=== PATIENT | female | born 1960 | race American Indian/Alaskan Native ===

== ENCOUNTER 2023-04-22 08:35 | Emergency (ER) | payer OTHER, SELFPAY ==
[2023-04-22 08:45] VITALS: BP 146/84; PULSE 77; RESP 20; TEMP 36.4; O2SAT 98; BMI 29.3
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
--- NOTE | 2023-04-22 11:03 | PC.NURSE ---
assumed care of patient 1100
== END 2023-04-22 11:13 | disposition home or self-care (01) ==
PROVIDERS: Emergency Provider Emergency Medicine Emergency Medical Services; PCP Internal Medicine
DX: S70.02XA Contusion of left hip, initial encounter (principal); S83.92XA Sprain of unspecified site of left knee, initial encounter; V43.52XA Car driver injured in collision with other type car in traffic accident, initial encounter; Y93.89 Activity, other specified; Y92.414 Local residential or business street as the place of occurrence of the external cause; Y99.9 Unspecified external cause status
CPT/HCPCS: 71046; 73000; 73564; 73610; 99282; 99283